=== PATIENT | male | born 1990 | race Caucasian/White ===

== ENCOUNTER 2018-11-29 06:41 | Emergency (ER) | payer OTHER ==
[~2018-11-29] VITALS: Ht 167.6 cm; Wt 61.4 kg
[2018-11-29 06:45] VITALS: Ht 167.6 cm; Wt 61.4 kg
[2018-11-29] MEDS ORDERED: ONDANSETRON 4 MG INJ IV STA (06:52)
[2018-11-29] MEDS ORDERED: SOD CHLORIDE 0.9% 1,000 ML IV STA (06:52)
[2018-11-29] MEDS ORDERED: HYDROmorphONE 1 MG/ML SYG IV STA (06:52)
--- NOTE | 2018-11-29 08:08 | ERD ---
ER Documentation Chief Complaint Chief Complaint abdominal pain and vomiting since yesterday HPI 27 year old male presents the emergency department complaining of abdominal pain. Patient states that intermittently over the last 3 months he has had a nonspecific visceral, poorly localized abdominal pain. He reports no fevers, chills, vomiting or diarrhea. Over the last 24 hours, he began having nonbilious, nonbloody emesis. He states that he has had multiple evaluations and other emergency departments which have been nondiagnostic including a CT scan. Currently the pain is reported as moderate to severe. ROS All systems reviewed and are negative except as per history of present illness. Allergies Allergies: Coded Allergies: No Known Allergy (Unverified , 11/29/18) PMhx/Soc Hx Alcohol Use: No Hx Substance Use: Yes (marijuana) Hx Tobacco Use: Yes (5 cigarettes/day ) Smoking Status: Current every day smoker FmHx Noncontributory for chief complaint Physical Exam Vitals Vital Signs Date Temp Pulse Resp B/P (MAP) Pulse Ox O2 O2 Flow FiO2 Time Delivery Rate 11/29/18 98.0 62 13 108/56 100 Room Air 07:56 (73) 11/29/18 70 15 146/90 96 Room Air 06:50 (108) 11/29/18 98.0 54 18 135/84 96 06:45 (101) Physical Exam GENERAL: The patient is well developed and appropriate for usual state of health in no apparent distress HEENT: Pupils equal, round, and reactive to light. EOMI. There is no scleral icterus. NECK: C-spine is soft and supple, there is no meningismus. There is no cervical lymphadenopathy. LUNGS: Clear to auscultation bilaterally. There are no rales, wheezes or rhonchi. HEART: Regular rate and rhythm, no murmurs, clicks, rubs or gallops. ABDOMEN: Soft, non-tender, non-distended. There are bowel sounds in all four quadrants. No rebound or guarding. EXTREMITIES: There is no peripheral cyanosis or edema. No focal swelling or erythema. NEURO: The patient moves all four extremities with 5/5 strength. Cranial nerves II - XII are intact. Normal gait. Alert and oriented SKIN: There is no apparent rash or petechiae. HEME/LYMPHATIC: There is no evidence of excessive bruising or lymphedema. PSYCHIATRIC: The patient does not appear anxious or depressed. Result Diagram: 11/29/18 0655 11/29/18 0655 Results 24 hrs Laboratory Tests Test 11/29/18 06:55 White Blood Count 10.2 10^3/ul Red Blood Count 5.22 10^6/ul Hemoglobin 15.9 g/dl Hematocrit 46.3 % Mean Corpuscular Volume 88.7 fl Mean Corpuscular Hemoglobin 30.5 pg Mean Corpuscular Hemoglobin Concent 34.3 g/dl Red Cell Distribution Width 12.5 % Platelet Count 209 10^3/UL Mean Platelet Volume 12.0 fl Immature Granulocytes % 0.200 % Neutrophils % 68.9 % Lymphocytes % 20.0 % Monocytes % 7.9 % Eosinophils % 2.7 % Basophils % 0.3 % Nucleated Red Blood Cells % 0.0 /100WBC Immature Granulocytes # 0.020 10^3/ul Neutrophils # 7.0 10^3/ul Lymphocytes # 2.0 10^3/ul Monocytes # 0.8 10^3/ul Eosinophils # 0.3 10^3/ul Basophils # 0.0 10^3/ul Nucleated Red Blood Cells # 0.0 10^3/ul Urine Color YELLOW Urine Clarity CLEAR Urine pH 5.0 Urine Specific [place] 1.021 Urine Ketones NEGATIVE mg/dL Urine Nitrite NEGATIVE mg/dL Urine Bilirubin NEGATIVE mg/dL Urine Urobilinogen NEGATIVE mg/dL Urine Leukocyte Esterase NEGATIVE Nubia/ul Urine Microscopic RBC 0 /HPF Urine Microscopic WBC 2 /HPF Urine Bacteria FEW /HPF Urine Mucus MODERATE /HPF Urine Hemoglobin 1+ mg/dL Urine Glucose NEGATIVE mg/dL Urine Total Protein NEGATIVE mg/dl Sodium Level 143 mmol/L Potassium Level 4.3 mmol/L Chloride Level 101 mmol/L Carbon Dioxide Level 26 mmol/L Anion Gap 16 Blood Urea Nitrogen 12 mg/dl Creatinine 1.11 mg/dl Est Glomerular Filtrat Rate mL/min > 60 mL/min Glucose Level 115 mg/dl Calcium Level 9.7 mg/dl Total Bilirubin 0.9 mg/dl Direct Bilirubin 0.00 mg/dl Indirect Bilirubin 0.9 mg/dl Aspartate Amino Transf (AST/SGOT) 27 IU/L Alanine Aminotransferase (ALT/SGPT) 23 IU/L Alkaline Phosphatase 66 IU/L Total Protein 7.9 g/dl Albumin 4.8 g/dl Globulin 3.10 g/dl Albumin/Globulin Ratio 1.54 Lipase 297 U/L Current Medications Medications Dose Sig/Fela Start Time Status Last (Trade) Ordered Route PRN Stop Time Admin Dose Reason Admin Sodium 1,000 ml @ Q1H STAT 11/29/18 DC 11/29/18 Chloride 1,000 mls/hr IV 06:52 06:59 11/29/18 07:51 1 mg ONCE STAT 11/29/18 DC 11/29/18 Hydromorphone IV 06:52 06:59 HCl 11/29/18 06:54 (Dilaudid) Ondansetron 4 mg ONCE STAT 11/29/18 DC 11/29/18 HCl (Zofran IV 06:52 06:59 Inj) 11/29/18 06:54 Procedures/MDM Patient was taken to a room, seen and evaluated. Comfort measures were initiated. Diagnostic tests were ordered and reviewed. RADIOLOGY: Reviewed with the radiologist REEVALUATION: Diagnostic tests were appreciated and discussed with the patient. Serial examinations of his abdomen remained benign. MEDICAL DECISION MAKING: Patient presents with abdominal pain of uncertain etiology. Differential diagnosis considered includes appendicitis, divert iculitis, cholecystitis and other intra-abdominal medical and surgical concerns. I have reviewed the patients lab studies and imaging as well as multiple examinations of the abdomen. At this time, patient's history, physical examination and lab tests all demonstrate a functional abdominal pain. After further history, this appears to be anxiety related. Patient has no clinical evidence of appendicitis or other high-risk intra-abdominal surgical concerns. He seems better after supportive care and appropriate for outpatient management. Departure Diagnosis: Primary Impression: Abdominal pain Condition: Stable Patient Instructions: Abdominal Pain Additional Instructions: See your doctor for follow-up as discussed. Take a copy of your test results, if appropriate, to this follow-up visit. See your doctor or return here if your symptoms do not improve as expected. At any time, please return to the emergency department for any change or worsening in her symptoms. DIONISIO SUMNER Nov 29, 2018 08:08
[2018-11-29 08:16] VITALS: BP 102/63; PULSE 67; RESP 13
== END 2018-11-29 08:17 | disposition home or self-care (01) ==
LOC: E/R 06:41
DX: R10.84 Generalized abdominal pain (principal); F17.210 Nicotine dependence, cigarettes, uncomplicated; R11.10 Vomiting, unspecified
CPT/HCPCS: 36415; 76705; 80053; 81001; 83690; 85025; 96374; 96375; J1170; J2405; J7030; Z7502

== ENCOUNTER 2018-12-28 06:56 | Emergency (ER) | payer OTHER ==
[~2018-12-28] VITALS: Ht 167.6 cm; Wt 59.9 kg
[2018-12-28 06:59] VITALS: Ht 167.6 cm; Wt 59.9 kg
[2018-12-28] MEDS ORDERED: ONDANSETRON 4 MG INJ IV STA (07:15)
[2018-12-28] MEDS ORDERED: SOD CHLORIDE 0.9% 1,000 ML IV STA (07:15)
[2018-12-28] MEDS ORDERED: DICYCLOMINE 10 MG CAP PO ONE (07:30)
[2018-12-28] MEDS ORDERED: FAMOTIDINE 20 MG INJ IV ONE (07:30)
[2018-12-28] MEDS ORDERED: SUCR1TAB56 PO (08:23)
[2018-12-28] MEDS ORDERED: ONDA4TAB14 PO (08:23)
[2018-12-28] MEDS ORDERED: ACET500C5 PO (08:23)
--- NOTE | 2018-12-28 09:05 | ERD ---
ER Documentation Chief Complaint Chief Complaint Complains of abdominal pain x 3 days HPI 28-year-old male presenting with abdominal pain times 3 days. Patient states is been a constant epigastric pain. Patient has a history of gastritis since taking Zofran at home. He states that he has been seen for this in the past and feels very similar. He denies medical problems. NKDA. Surgical history denies. Social history smokes 3 cigarettes a day. Drug use denies. ROS All systems reviewed and are negative except as per history of present illness. Medications Home Meds Active Scripts Acetaminophen* (Tylophen*) 500 Mg Capsule, 1 CAP PO Q6H PRN for PAIN AND OR ELEVATED TEMP, #20 CAP Prov:MERLY MORRIS PA-C 12/28/18 Ondansetron (Ondansetron Odt) 4 Mg Tab.rapdis, 4 MG PO Q6H PRN for NAUSEA AND/OR VOMITING, #10 TAB Prov:MERLY MORRIS PA-C 12/28/18 Sucralfate* (Carafate*) 1 Gm Tab, 1 GM PO DAILY, #20 TAB Prov:MERLY MORRIS PA-C 12/28/18 Allergies Allergies: Coded Allergies: No Known Allergy (Unverified , 11/29/18) PMhx/Soc Medical and Surgical Hx: pt denies Medical Hx, pt denies Surgical Hx Hx Alcohol Use: No Hx Substance Use: Yes (marijuana) Hx Tobacco Use: Yes (5 cigarettes/day ) Smoking Status: Current every day smoker FmHx Family History: No diabetes, No coronary disease, No other Physical Exam Vitals Vital Signs Date Temp Pulse Resp B/P (MAP) Pulse Ox O2 O2 Flow FiO2 Time Delivery Rate 12/28/18 98.2 67 20 143/88 95 06:59 (106) Physical Exam GENERAL: The patient is well-appearing, well-nourished, in no acute distress HEENT: Atraumatic. Conjunctivae are pink. Pupils equal, round, and reactive to light. There is no scleral icterus. Tympanic membranes clear bilaterally. Oropharynx clear. No nystagmus or photophobia. NECK: C-spine is soft and supple. There is no meningismus. There is no cervical lymphadenopathy. No JVD. No bruits. No goiter. CHEST: Clear to auscultation bilaterally. There are no rales, wheezes or rhonchi. HEART: Regular rate and rhythm. No murmurs, clicks, rubs or gallops. No S3 or S4. ABDOMEN: Normal active bowel sounds. No distention. No organomegaly. Tender to palpation over the auricle region with questionable radiation to the right lower quadrant. Result Diagram: 12/28/18 0727 12/28/18 0727 Results 24 hrs Laboratory Tests Test 12/28/18 07:27 White Blood Count 9.9 10^3/ul Red Blood Count 5.12 10^6/ul Hemoglobin 15.3 g/dl Hematocrit 45.4 % Mean Corpuscular Volume 88.7 fl Mean Corpuscular Hemoglobin 29.9 pg Mean Corpuscular Hemoglobin Concent 33.7 g/dl Red Cell Distribution Width 12.8 % Platelet Count 227 10^3/UL Mean Platelet Volume 11.8 fl Immature Granulocytes % 0.500 % Neutrophils % 75.4 % Lymphocytes % 11.7 % Monocytes % 8.4 % Eosinophils % 3.4 % Basophils % 0.6 % Nucleated Red Blood Cells % 0.0 /100WBC Immature Granulocytes # 0.050 10^3/ul Neutrophils # 7.5 10^3/ul Lymphocytes # 1.2 10^3/ul Monocytes # 0.8 10^3/ul Eosinophils # 0.3 10^3/ul Basophils # 0.1 10^3/ul Nucleated Red Blood Cells # 0.0 10^3/ul Urine Color YELLOW Urine Clarity CLEAR Urine pH 5.0 Urine Specific [place] 1.031 Urine Ketones TRACE mg/dL Urine Nitrite NEGATIVE mg/dL Urine Bilirubin NEGATIVE mg/dL Urine Urobilinogen 1+ mg/dL Urine Leukocyte Esterase NEGATIVE Nubia/ul Urine Microscopic RBC 2 /HPF Urine Microscopic WBC 2 /HPF Urine Mucus MODERATE /HPF Urine Hemoglobin 1+ mg/dL Urine Glucose NEGATIVE mg/dL Urine Total Protein NEGATIVE mg/dl Sodium Level 145 mmol/L Potassium Level 4.0 mmol/L Chloride Level 104 mmol/L Carbon Dioxide Level 27 mmol/L Anion Gap 14 Blood Urea Nitrogen 12 mg/dl Creatinine 0.84 mg/dl Est Glomerular Filtrat Rate mL/min > 60 mL/min Glucose Level 87 mg/dl Calcium Level 9.5 mg/dl Total Bilirubin 0.6 mg/dl Direct Bilirubin 0.00 mg/dl Indirect Bilirubin 0.6 mg/dl Aspartate Amino Transf (AST/SGOT) 22 IU/L Alanine Aminotransferase (ALT/SGPT) 26 IU/L Alkaline Phosphatase 63 IU/L Total Protein 7.7 g/dl Albumin 4.8 g/dl Globulin 2.90 g/dl Albumin/Globulin Ratio 1.65 Lipase 166 U/L Current Medications Medications Dose Sig/Fela Start Time Status Last (Trade) Ordered Route PRN Stop Time Admin Dose Reason Admin Sodium 1,000 ml @ Q1H STAT 12/28/18 DC 12/28/18 Chloride 1,000 mls/hr IV 07:15 07:49 12/28/18 08:14 Ondansetron 4 mg ONCE STAT 12/28/18 DC 12/28/18 HCl (Zofran IV 07:15 07:40 Inj) 12/28/18 07:16 Famotidine 20 mg ONCE ONCE 12/28/18 DC 12/28/18 (Pepcid Iv) IV 07:30 07:40 12/28/18 07:31 Dicyclomine 10 mg ONCE ONCE 12/28/18 DC 12/28/18 HCl PO 07:30 07:40 (Bentyl) 12/28/18 07:31 Procedures/MDM DIAGNOSTIC IMAGING REPORT Patient: KATHLEEN RUEDA : 1990 Age: 28 Sex: M MR #: [id number] DOS: 12/28/18 0715 Ordering MD: CINDY MORRIS PA-C Location: [facility] Room/Bed: PROCEDURE: CT Abdomen and pelvis without contrast. CLINICAL INDICATION: Abdominal pain TECHNIQUE: CT scan of the abdomen and pelvis without contrast was performed on a multidetector high-resolution CT scan. . Coronal and sagittal reformatted images were obtained from the axial source images. Standard CT scan of the abdomen pelvis without contrast protocols were performed. The total exam CTDI equals 5.06 mGy and the total exam DLP equals 277.54 mGy-cm. One or more of the following dose reduction techniques were used: - Automated exposure control. - Adjustment of the mA and/or kV according to patient size. Use of iterative reconstruction technique. Dicom images are available COMPARISON: Abdominal ultrasound 11/29/2018 FINDINGS: The kidneys are normal in size without calcified calculi, hydronephrosis or intra renal masses bilaterally. No evidence ureteral calcified calculi or dilatation. Contracted otherwise unremarkable urinary bladder. Prostate unremarkable. Mild wall thickening of the rectum without perirectal induration however rule out proctitis. Mild diverticular changes of the sigmoid, descending and distal transverse colon but no CT evidence of diverticulitis. Remainder of the colon is unremarkable. The stomach, small bowel and appendix are unremarkable. No evidence of intra-abdominal free air, free fluid, abscesses or lymphadenopathy. Liver spleen pancreas adrenal glands and gallbladder are unremarkable. No evidence biliary ductal dilation. Aorta unremarkable. Small fat containing right inguinal hernia without herniated bowel or strangulation. Lung bases unremarkable. Minimal degenerative changes lower thoracic lumbar spine without acute osseous findings are osteoblastic/osteolytic lesions. IMPRESSION: 1. Mild wall thickening of the rectum without perirectal induration however rule out proctitis. 2. Mild diverticulosis of the distal transverse descending and sigmoid colon but no CT evidence of diverticulitis. 3. Unremarkable appendix. 4. No calcified urinary calculi or obstructive uropathy. ER Course: 1L NS and zofran and bentyl given in ED MDM: 28-year-old male presenting with dominant pain. Patient CT scan is within normal limits. Patient likely has irritation secondary to his gastritis and I will suspicion for acute abdominal emergency. Patient not complaining of rectal pain and that his vitals are stable. I do not feel that antibiotics are indicated. Patient is discharged stricter precautions and told to follow-up with primary care within 1-2 days for close evaluation. Patient is told if symptoms change or worsen to return immediately to the ER. All questions answe red at discharge Departure Diagnosis: Primary Impression: Abdominal pain Condition: Stable Patient Instructions: Epigastric Pain (Uncertain Cause) Referrals: [facility] YOU HAVE RECEIVED A MEDICAL SCREENING EXAM AND THE RESULTS INDICATE THAT YOU DO NOT HAVE A CONDITION THAT REQUIRES URGENT TREATMENT IN THE EMERGENCY DEPARTMENT. FURTHER EVALUATION AND TREATMENT OF YOUR CONDITION CAN WAIT UNTIL YOU ARE SEEN IN YOUR DOCTORS OFFICE WITHIN THE NEXT 1-2 DAYS. IT IS YOUR RESPONSIBILITY TO MAKE AN APPOINTMENT FOR FOLOW-UP CARE. IF YOU HAVE A PRIMARY DOCTOR --you should call your primary doctor and schedule an appointment IF YOU DO NOT HAVE A PRIMARY DOCTOR YOU CAN CALL OUR PHYSICIAN REFERRAL HOTLINE AT IF YOU CAN NOT AFFORD TO SEE A PHYSICIAN YOU CAN CHOSE FROM THE FOLLOWING [facility] [address] [facility] [address] [facility] [address] [facility] [address] [facility] [address] [facility] [facility]. [address] Additional Instructions: FOLLOW UP WITH YOUR PRIMARY CARE PHYSICIAN TOMORROW.Return to this facility if you are not improving as expected. MERLY MORRIS PA-C Dec 28, 2018 09:05
[2018-12-28 09:16] VITALS: BP 129/61; PULSE 60; RESP 16
[2018-12-28] MEDS ORDERED: LIDOCAINE/MYLANTA 40 ML BTL PO STA (09:45)
[2018-12-28] MEDS ORDERED: BELLADONNA/PHENOBARBITAL TAB PO STA (09:45)
[2018-12-28] MEDS ORDERED: SCOPOLAMINE 1.5 MG PATCH TRANSDERM ONE (10:00)
[2018-12-28] MEDS ORDERED: ONDANSETRON 4 MG INJ IM STA (10:19)
== END 2018-12-28 11:19 | disposition home or self-care (01) ==
LOC: FTE 06:56
DX: R10.9 Unspecified abdominal pain (principal); F17.210 Nicotine dependence, cigarettes, uncomplicated
CPT/HCPCS: 36415; 74176; 80053; 81001; 83690; 85025; 96372; 96374; 96375; J2405; J7030; Z7502; Z7610